=== PATIENT | male | born 1990 | race Two or more races ===

== ENCOUNTER 2016-08-06 11:20 | Emergency (ER) | payer SELFPAY ==
[~2016-08-06] VITALS: Ht 167.6 cm; Wt 68.0 kg
[2016-08-06 12:13] VITALS: BP 172/82
--- NOTE | 2016-08-06 13:07 | RAD ---
Indication headache. Noncontrast images of the head were obtained. No prior imaging is available. The calvarium appears unremarkable. The visualized paranasal sinuses appear normal. There is no subdural or epidural hematoma. The ventricles and sulci are normal. No mass or midline shift is seen. There is no hemorrhage. No acute intracranial finding is seen. IMPRESSION: Normal study PQRS Compliance Statement: One or more of the following individualized dose reduction techniques were utilized for this examination: 1. Automated exposure control 2. Adjustment of the mA and/or kV according to patient size 3. Use of iterative reconstruction technique
--- NOTE | 2016-08-06 13:23 | PHYS DOC ---
Past Medical History Past Medical History: Anxiety Past Surgical History: No Surgical History Alcohol Use: None Drug Use: None Adult General Chief Complaint Chief Complaint: BACK PAIN OR INJURY [facility] HPI Patient is a 25 year old male with history of self diagnosed hypertension who presents today with a posterior headaches mild in nature that have been going on intermittently for 1-1/2 months. Patient denies this headaches being the worse headaches in his life. He states he has taken his blood pressure multiple times at local [facility] and they have been elevated. He states he has not followed up with anyone because he does not speak good Egnlish though he is speaking good Sinhala ED explaining his information. He states he has been diagnosed with anxiety before. Patient denies any suicidal or homicidal ideation. Denies any anxiety right now. Review of Systems Review of Systems Constitutional: Denies fever or chills [] Eyes: Denies change in visual acuity, redness, or eye pain [] HENT: Denies nasal congestion or sore throat [] Respiratory: Denies cough or shortness of breath [] Cardiovascular: No additional information not addressed in HPI [] GI: Denies abdominal pain, nausea, vomiting, bloody stools or diarrhea [] : Denies dysuria or hematuria [] Musculoskeletal: Denies back pain or joint pain [] Integument: Denies rash or skin lesions [] Neurologic: headache Endocrine: Denies polyuria or polydipsia [] Allergies Allergies Allergies Coded Allergies Type Severity Reaction Last Updated Verified No Known Drug Allergies 08/06/16 No Physical Exam Physical Exam Constitutional: Well developed, well nourished, no acute distress, non-toxic appearance. [] HENT: Normocephalic, atraumatic, bilateral external ears normal, oropharynx moist, no oral exudates, nose normal. [] Eyes: PERRLA, EOMI, conjunctiva normal, no discharge. [] Neck: Normal range of motion, no tenderness, supple, no stridor. [] Cardiovascular:Heart rate regular rhythm, no murmur [] Lungs & Thorax: Bilateral breath sounds clear to auscultation [] Abdomen: Bowel sounds normal, soft, no tenderness, no masses, no pulsatile masses. [] Skin: Warm, dry, no erythema, no rash. [] Back: No tenderness, no CVA tenderness. [] Extremities: No tenderness, no cyanosis, no clubbing, ROM intact, no edema. [] Neurologic: Alert and oriented X 3, normal motor function, normal sensory function, no focal deficits noted. Cranial nerves II through XII intact Psychologic: Affect normal, judgement normal, mood normal. [] Current Patient Data Vital Signs Vital Signs Date Time Temp Pulse Resp B/P (MAP) Pulse Ox O2 Delivery O2 Flow Rate FiO2 08/06/16 12:13 98.6 90 18 98 Room Air 98.6 EKG EKG [] Radiology/Procedures Radiology/Procedures [] Course & Med Decision Making Course & Med Decision Making Pertinent Labs and Imaging studies reviewed. (See chart for details) This is a 25-year-old male patient with a soft diagnoses of hypertension who presents today with posterior headaches for 1-1/[address] of the head is negative for any acute findings. Blood pressure was 172/82 with a heart rate of 90. He is in no distress. I highly recommended he follows up with the PCP which we provided. I even provided a doctor that speaks Danish. He was provided prescription for Ultram. Provided return precautions and discharged in stable condition. Dragon Disclaimer Dragon Disclaimer This electronic medical record was generated, in whole or in part, using a voice recognition dictation system. Departure Departure Impression: Primary Impression: Headache Additional Impression: High blood pressure Disposition: 01 HOME, SELF-CARE Condition: STABLE Referrals: NO PCP (PCP) REID KNOTT MD follow up this doctor or your own doctor in one week Patient Instructions: General Headache Without Cause, Hypertension Additional Instructions: You were seen for ongoing headaches and high blood pressure. We highly recommend you establish care with a primary care doctor. Take the prescribed medicines as needed for headache. Come back to the ED symptoms worsen. Scripts Tramadol Hcl (ULTRAM) 50 Mg Tablet 1 TAB PO Q6HRS, #30 TAB Prov: GINGER GARCIA APRN 08/06/16 Problem Qualifiers Primary Impression: Headache Headache type: unspecified Headache chronicity pattern: unspecified pattern Intractability: not intractable Qualified Codes: R51 - Headache Additional Impression: High blood pressure Hypertension type: unspecified secondary hypertension Qualified Codes: I15.9 - Secondary hypertension, unspecified GINGER GARCIA APRN August 06, 2016 13:23
[2016-08-06] MEDS ORDERED: TRAM-29 PO (13:27)
== END 2016-08-06 13:45 | disposition home or self-care (01) ==
LOC: ER 11:20
DX: R51 Headache (principal); R03.0 Elevated blood-pressure reading, without diagnosis of hypertension
CPT/HCPCS: 70450; 99284-25

== ENCOUNTER 2016-08-22 11:30 | Emergency (ER) | payer SELFPAY ==
[~2016-08-22] VITALS: Ht 170.2 cm; Wt 70.3 kg
[~2016-08-22 11:30] MED LIST: TRAM-29 PO
[2016-08-22 11:46] VITALS: BP 178/97
[2016-08-22 12:00] LABS: BILIRUBIN,URINE NEGATIVE (NEG); GLUCOSE,URINE NEGATIVE (NEG); NITRITE,URINE NEGATIVE (NEG); PROTEIN,URINE NEGATIVE (NEG-TRACE)
--- NOTE | 2016-08-22 12:08 | PHYS DOC ---
Past Medical History Past Medical History: Anxiety, Hypertension Past Surgical History: No Surgical History Alcohol Use: None Drug Use: None Adult General Chief Complaint Chief Complaint: PAIN ON URINATION HPI HPI Patient is a 25 year old L presents the emergency department stating that he has been having irritation on his penis for the last 4-5 months. He states that he has a foul smell from the area as well. He denies being sexually active since 5 months ago. He denies any hearing symptoms. He denies any back pain denies any nausea vomiting. Patient does state that he was concerned for sexually transmitted infections with the nursing staff. Review of Systems Review of Systems Constitutional: Denies fever or chills [] Eyes: Denies change in visual acuity, redness, or eye pain [] HENT: Denies nasal congestion or sore throat [] Respiratory: Denies cough or shortness of breath [] Cardiovascular: No additional information not addressed in HPI [] GI: Denies abdominal pain, nausea, vomiting, bloody stools or diarrhea [] : Denies dysuria or hematuria [] Musculoskeletal: Denies back pain or joint pain [] Integument: C/o rash on the penis Neurologic: Denies headache, focal weakness or sensory changes [] Endocrine: Denies polyuria or polydipsia [] Current Medications Current Medications Current Medications Medications (Trade) Dose Ordered Sig/Kemar Start Time Stop Time Status Last Admin Dose Admin Azithromycin (Zithromax) 1,000 mg 1X ONCE 08/22/16 12:15 08/22/16 12:16 DC Ceftriaxone Sodium (Rocephin Im) 250 mg 1X ONCE 08/22/16 12:15 08/22/16 12:16 DC Metronidazole (Flagyl) 2,000 mg 1X ONCE 08/22/16 12:15 08/22/16 12:16 DC Allergies Allergies Allergies Coded Allergies Type Severity Reaction Last Updated Verified No Known Drug Allergies 08/06/16 No Physical Exam Physical Exam Constitutional: Well developed, well nourished, no acute distress, non-toxic appearance. [] HENT: Normocephalic, atraumatic, bilateral external ears normal, oropharynx moist, no oral exudates, nose normal. [] Eyes: PERRLA, EOMI, conjunctiva normal, no discharge. [] Neck: Normal range of motion, no tenderness, supple, no stridor. [] Cardiovascular:Heart rate regular rhythm, no murmur [] Lungs & Thorax: Bilateral breath sounds clear to auscultation [] Skin: Warm, dry, no erythema, no rash. [] Back: No tenderness Extremities: No tenderness, no cyanosis, no clubbing, ROM intact, no edema. [] Neurologic: Alert and oriented X 3, normal motor function, normal sensory function, no focal deficits noted. [] Psychologic: Affect normal, judgement normal, mood normal. [] Penis was inspected with WALDO Cohen at bedside no lesions or discoloration noted no rash noted. Patient with no testicular pain or discomfort. Current Patient Data Vital Signs Vital Signs Date Time Temp Pulse Resp B/P (MAP) Pulse Ox O2 Delivery O2 Flow Rate FiO2 08/22/16 11:46 98.3 70 16 98 Room Air 98.3 Lab Values Laboratory Tests Test 08/22/16 11:50 Urine Collection Type Unknown Urine Color Yellow Urine Clarity Clear Urine pH 6.0 Urine Specific Gates 1.025 Urine Protein Negative mg/dL (NEG-TRACE) Urine Glucose (UA) Negative mg/dL (NEG) Urine Ketones (Stick) Negative mg/dL (NEG) Urine Blood Negative (NEG) Urine Nitrite Negative (NEG) Urine Bilirubin Negative (NEG) Urine Urobilinogen Dipstick 1.0 mg/dL (0.2 mg/dL) Urine Leukocyte Esterase Small (NEG) Urine RBC 0 /HPF (0-2) Urine WBC 5-10 /HPF (0-4) Urine Bacteria 0 /HPF (0-FEW) Urine Mucus Mod /LPF EKG EKG [] Radiology/Procedures Radiology/Procedures [] Course & Med Decision Making Course & Med Decision Making Pertinent Labs and Imaging studies reviewed. (See chart for details) Patient will be treated for STDs here be provided with Rocephin and Zithromax and Flagyl. Urine was positive for small amount of leukocyte Estrace. He'll be placed on Cipro at discharge. Recommended no sexual intercourse for the next 2 weeks. Patient was also instructed that we will notify him in 3-4 days if the STD results are positive. Patient was provided with signs and symptoms to return back to emergency department. He was also provided information on how to prevent STDs. [] Dragon Disclaimer Dragon Disclaimer This electronic medical record was generated, in whole or in part, using a voice recognition dictation system. Departure Departure Impression: Primary Impression: UTI (urinary tract infection) Additional Impression: Concern about STD in male without diagnosis Disposition: 01 HOME, SELF-CARE Condition: STABLE Referrals: NO PCP (PCP) Patient Instructions: Sexually Transmitted Disease, [id number], Urinary Tract Infection, Child Additional Instructions: Urine results are positive for urinary tract infection. You will be notified in 2-3 days if you're results are positive for any sexually transmitted infections. However you have been treated in the emergency department for them. He will be placed on antibiotics for urinary tract infection. Drink plenty of fluids such as water and cranberry juice. Avoid cranberry juice cocktail, carbonate beverages, citrus fruits and alcohol disease are considered irritants to the bladder. No sexual intercourse for the next 2 weeks. Use condoms whenever you're having sexual intercourse this will prevent sexually transmitted infections. Follow-up with primary care physician in the next 7-10 days. Return back to emergency prior signs symptoms of become worse. Scripts Ciprofloxacin Hcl (CIPRO) 500 Mg Tablet 1 TAB PO BID, #14 TAB Prov: KAYLI CHAMBERS APRN 08/22/16 Problem Qualifiers KAYLI CHAMBERS APRN August 22, 2016 12:08
[2016-08-22 12:13] LABS: BACTERIA,URINE 0 /HPF (0-FEW); RBC,URINE 0 /HPF (0-2)
[2016-08-22] MEDS ORDERED: metroNIDAZOLE 500 MG TABLET PO ONE (12:15)
[2016-08-22] MEDS ORDERED: AZITHROMYCIN 250 MG TABLET. PO ONE (12:15)
[2016-08-22] MEDS ORDERED: cefTRIAXone IM 250 MG VIAL IM ONE (12:15)
[2016-08-22] MEDS ORDERED: CIPR500T94 PO (12:26)
== END 2016-08-22 12:47 | disposition home or self-care (01) ==
LOC: ER 12:12
DX: N39.0 Urinary tract infection, site not specified (principal); F41.9 Anxiety disorder, unspecified; I10 Essential (primary) hypertension
CPT/HCPCS: 81001; 87086; 87491; 87591; 96372; 99284; J0696; Q0144